=== PATIENT | male | born 1960 | race Two or more races ===

== ENCOUNTER 2023-12-17 15:23 | Emergency (ER) | payer BC, OTHER ==
[~2023-12-17] VITALS: Ht 170.2 cm; Wt 81.6 kg
[2023-12-17 16:23] VITALS: BP 137/81; PULSE 74; RESP 16; TEMP 97.9; O2SAT 96
[2023-12-17 17:26] VITALS: BP 148/85; PULSE 81; RESP 18; O2SAT 96
[2023-12-17 17:57] LABS: APPEARANCE,URINE CLEAR (CLEAR); BILIRUBIN,URINE NEGATIVE (NEGATIVE); BLOOD, URINE NEGATIVE (NEGATIVE); COLOR,URINE YELLOW (YELLOW); LEUKOCYTE ESTERASE ,URINE NEGATIVE (NEGATIVE); NITRITE, URINE NEGATIVE (NEGATIVE); PH,URINE 7.5 (5.0-9.0); PROTEIN,URINE NEGATIVE (NEGATIVE); UGLUCOSE NEGATIVE (NEGATIVE); UROBILINOGEN,URINE 0.2 EU/dL (0.2 - 1)
[2023-12-17 17:58] LABS: BASOPHILS % (AUTO) 0.4 % (0.0-2.0); EOSINOPHILS # (AUTO) 0.3 K/uL (0-0.4); EOSINOPHILS % (AUTO) 4.3 % (0.0-4.0); HEMATOCRIT 35.4 % (36-52); HEMOGLOBIN 12.6 g/dL (12.0-18.0); LYMPHOCYTES # (AUTO) 1.3 K/uL (2.0-11.5); LYMPHOCYTES % (AUTO) 21.9 % (20.5-51.1); MEAN CORPUSCULAR HEMOGLOBIN 43 pg (27-31); MEAN CORPUSCULAR HGB CONC 36 g/dL (33-37); MEAN CORPUSCULAR VOLUME 119.5 fL (80-94); MONOCYTES # (AUTO) 0.5 K/uL (0.8-1.0); MONOCYTES % (AUTO) 8.2 % (1.7-9.3); NEUTROPHILS # (AUTO) 3.8 K/uL (1.8-7.7); NEUTROPHILS % (AUTO) 65.2 % (42.2-75.2); PLATELET COUNT (AUTO) 264 K/uL (140-450); RED BLOOD CELL COUNT(AUTO) 2.96 MIL/uL (4.20-6.10); RED CELL DISTRIBUTION WIDTH 16.6 % (11.6-13.7); WHITE BLOOD COUNT (AUTO) 5.9 K/uL (4.8-10.8)
[2023-12-17 18:16] LABS: ANION GAP 11.2 (8-16); CALCIUM 8.6 mg/dL (8.5-10.1); CARBON DIOXIDE 28.6 mmol/L (21-32); POTASSIUM 3.8 mmol/L (3.5-5.1)
[2023-12-17 18:18] LABS: ALBUMIN 3.7 g/dL (3.4-5.0); BILIRUBIN,DIRECT 0.1 mg/dL (0.0-0.3); TOTAL BILIRUBIN 0.4 mg/dL (0.0-1.0); TOTAL PROTEIN, SERUM 6.7 g/dL (6.4-8.2)
[2023-12-17] MEDS ORDERED: IBUP-1842 PO (19:34)
[2023-12-17] MEDS ORDERED: ACET-2619 PO (19:34)
== END 2023-12-17 19:42 | disposition home or self-care (01) ==
LOC: MED 15:23
DX: K40.90 Unilateral inguinal hernia, without obstruction or gangrene, not specified as recurrent (principal); Z79.899 Other long term (current) drug therapy
CPT/HCPCS: 36415; 74177; 80048; 80076; 81003; 83690; 85025; 99285; Q9967

== ENCOUNTER 2024-02-21 10:16 | Emergency (ER) | payer OTHER ==
[~2024-02-21] VITALS: Ht 167.6 cm; Wt 79.8 kg
[~2024-02-21 10:16] MED LIST: ACET-2619 PO; IBUP-1842 PO
[2024-02-21 10:25] VITALS: BP 134/86; PULSE 70; RESP 18; TEMP 97.4; O2SAT 97
== END 2024-02-21 11:20 | disposition home or self-care (01) ==
LOC: MED 10:16
DX: K40.90 Unilateral inguinal hernia, without obstruction or gangrene, not specified as recurrent (principal); Z85.850 Personal history of malignant neoplasm of thyroid; Z79.1 Long term (current) use of non-steroidal anti-inflammatories (NSAID)
CPT/HCPCS: 99281